=== PATIENT | male | born 1955 | race Caucasian/White ===

== ENCOUNTER 2018-09-18 11:13 | Inpatient (IN) | payer OTHER ==
[~2018-09-18] VITALS: Ht 167.6 cm; Wt 137.4 kg
[2018-09-18 11:13] VITALS: BP 128/84
[~2018-09-18 11:13] MED LIST: ASPIR 8181 MG PO; ASPIRIN325 PO; AVALIDE 300-121 EACH PO; IRBESARTAN-HCT1 EAC1; LOSARTAN-HCTZ1 EAC2 PO; PAXIL10 MG
[2018-09-18] MEDS ORDERED: FARXIGA10 MG PO (12:36)
[2018-09-18] MEDS ORDERED: NORVASC2.5 MG PO (12:37)
[2018-09-18] MEDS ORDERED: FLOMAX0.4 MG PO (12:37)
[2018-09-18 17:35] LABS: ABSOLUTE NEUTROPHILS 11.4 thou/uL (1.4-8.2); BASOPHILS 0.5 % (0.0-2.0); EOSINOPHILS 0.6 % (0.0-3.0); HEMOGLOBIN 16.8 gm/dL (14.0-18.0); LYMPHOCYTES 8.4 % (24.0-44.0); MCH 27.7 pg (26.0-34.0); MCV 83.9 fL (80.0-100.0); MONOCYTES 7.7 % (1.0-8.0); PLATELET COUNT 215 thou/uL (150-400); POLYS 82.8 % (36.0-66.0); RBC 6.07 mil/uL (4.50-6.00); RDW 14.3 % (10.5-14.5); WBC 13.7 thou/uL (4.0-11.0)
[2018-09-18 17:43] LABS: CALCIUM 9.2 mg/dL (8.5-10.1); CREATININE 0.9 mg/dL (0.7-1.3); POTASSIUM 3.9 mmol/L (3.5-5.1)
[2018-09-18 19:40] VITALS: BP 114/71
[2018-09-18 20:11] VITALS: BP 114/71
[2018-09-19 04:30] VITALS: BP 100/60
[2018-09-19 05:28] LABS: HEMATOCRIT 48.8 % (42.0-52.0); HEMOGLOBIN 16.2 gm/dL (14.0-18.0); MCH 28.1 pg (26.0-34.0); MCHC 33.2 g/dL (28.0-37.0); MCV 84.6 fL (80.0-100.0); RBC 5.78 mil/uL (4.50-6.00); RDW 14.5 % (10.5-14.5); WBC 11.8 thou/uL (4.0-11.0)
[2018-09-19 05:44] LABS: CALCIUM 8.7 mg/dL (8.5-10.1); CREATININE 0.9 mg/dL (0.7-1.3); MAGNESIUM 2.1 mg/dL (1.8-2.4); POTASSIUM 3.9 mmol/L (3.5-5.1)
--- NOTE | 2018-09-19 05:59 | NUR ---
PATIENT CARES WERE ASSUMED AT SHIFT CHANGE, PATIENT WAS ASSESSED AND MEDS WERE PASSED. PATIENT DID REFUSED HIS FLOMAX AT HS. PATIENT STATED HE TAKES THAT MED AT NIGHT. WILL RESCHEDULE FLOMAX. HOURLY ROUNDING WAS DONE. PATIENT DID APPER TO SLEEP ABOUT 5 HOURS. THE BED IS IN A LOW LOCKED POSITION.
--- NOTE | 2018-09-19 07:51 | EKG ---
[place] [address] [facility] [place] [address] ELECTROCARDIOGRAM REPORT Name: FRANCESCA RODRIGUES Room #: 432-P [facility]..#: [id number] ������������������ Admission: 09/18/18 ������������������ Attend Phys: Sacha Kay MD Discharge: ������������������ Date of : 51 Report #: [id number] ����������������������������������������������������������������� [id number] THIS REPORT FOR: //name// [facility] ED Test Date: 2018-09-18 Test Time: 16:50:01 Pat Name: FRANCESCA RODRIGUES Department: Room: 432 Gender: M Director Of Retail: HANNAH : 1955 Requested By: Jody Reinoso Order Number: [id number] MD: Jabier Saleh Measurements Intervals [place] Rate: 79 P: 7 VA: 193 QRS: -15 QRSD: 89 T: 19 QT: 379 QTc: 435 Interpretive Statements Sinus rhythm Borderline left axis deviation Abnormal R-wave progression, early transition Compared to ECG 11/04/2015 21:49:53 Sinus tachycardia no longer present Electronically Signed On 09-19-2018 7:51:49 MDS COORDINATOR by Jabier Saleh [email or web address] ��������������������������������������������� <ELECTRONICALLY SIGNED> ���������������������������������������� By: Jabier Saleh MD, [facility] ��������������������������������������������� 09/19/18 0751 1650 1650 Jabier Saleh MD, [facility] /EPI
[2018-09-19 08:30] VITALS: BP 96/53
[2018-09-19] MEDS ORDERED: IRBESARTAN-HCT1 EAC1 PO (09:09)
[2018-09-19] MEDS ORDERED: MIRALAX17 GM PO (09:09)
[2018-09-19 10:33] VITALS: BP 96/53
[2018-09-19 10:54] VITALS: BP 169/93
--- NOTE | 2018-09-19 12:44 | NUR ---
Assumed pt care at 7am.Pt in bed resting and wanted to dc home this am. Assessment completed.vss.Pt tolerated meds and diet.Dr aKy her,dc order noted.Dc summary compiled and reviewed with pt and dc summary copy given. Saline lock dc'd.At 1120,pt dc home in [place] accompanied by behavioral technician.
== END 2018-09-19 12:56 | disposition home or self-care (01) | DRG 378 ==
LOC: ER 11:13 → 4E 18:36 → EROBS 18:36 → 4E 20:11
PROVIDERS: Emergency Medicine; ADMIT Internal Medicine
DX: K62.5 Hemorrhage of anus and rectum (principal); Z68.42 Body mass index [BMI] 45.0-49.9, adult; K59.00 Constipation, unspecified; I10 Essential (primary) hypertension; E11.9 Type 2 diabetes mellitus without complications; E66.01 Morbid (severe) obesity due to excess calories; Z79.82 Long term (current) use of aspirin; Z79.899 Other long term (current) drug therapy
CPT/HCPCS: 10783

== ENCOUNTER → 2018-10-13 | Outpatient (CLI) | payer OTHER ==
[~2018-10-13] VITALS: Ht 170.2 cm; Wt 131.5 kg
[~2018-10-13] MED LIST changes: +AFRIN15 ML NASAL; +AZELASTINE137 MCG/0. NASAL; +FARXIGA10 MG PO; +FLOMAX0.4 MG PO; +FLONASE 0.05%50 MCG NASAL; +IRBESARTAN-HCT1 EAC1 PO; +MIRALAX17 GM PO; +NORVASC2.5 MG PO
--- NOTE | 2018-10-16 08:40 | P ---
[facility] [place] [address] PROCEDURE REPORT Name: FRANCESCA RODRIGUES [id number] Admission: 10/13/18 ������������������ Attend Phys: Link Jaimes Discharge: ������������������ Date of : 51 Report #: [id number] THIS REPORT FOR: //name// CC: Link Kay DATE OF SERVICE: 10/13/2018 PROCEDURE PERFORMED: Colonoscopy with biopsies. HISTORY OF PRESENT ILLNESS: The patient is a 63-year-old male with a history of intermittent bright red blood per rectum. He does report constipation recently. Last colonoscopy was in 2004. He is unsure of the findings at that time. No family history of colon cancer. PROCEDURE: The risks and benefits of the procedure were explained to the patient, those risks including but not limited to bleeding, perforation, the risk of sedation. He understood these risks and gave informed consent. Sedation was given using propofol per anesthesia. Next, a digital rectal exam was initially performed, showed small external hemorrhoids, otherwise normal. Next, using a standard Olympus colonoscope, the scope was placed in the patient's anus and advanced under direct vision to the cecum. The overall prep was good. In the cecum, there was a 3 mm sessile polyp. This was removed with cold forceps, otherwise normal. The ileocecal valve was normal. The ascending, transverse and descending colon were normal. Multiple small diverticula were noted in the sigmoid colon, no evidence of inflammation, otherwise normal. The rectal mucosa was normal. On retroflexion, small nonbleeding internal hemorrhoids were noted. Close examination of the anal canal showed a small anal fissure, nonbleeding and small external hemorrhoids as well. The scope was then withdrawn and the procedure terminated. The patient tolerated the procedure well. IMPRESSION: 1. Small colonic polyp. 2. Sigmoid diverticulosis. 3. Internal and external hemorrhoids. 4. Small anal fissure. RECOMMENDATIONS: 1. Await biopsy results. 2. I suspect recent bright red blood is from anal fissure. Would recommend daily MiraLax as well as Analpram b.i.d. for the next 2 weeks and then on a p.r.n. basis. [address] [address] PROCEDURE REPORT Name: FRANCESCA RODRIGUES [place] [facility] [id number] Admission: 10/13/18 ������������������ Attend Phys: Link Jaimes Discharge: ������������������ Date of : 51 Report #: [id number] Thank you for allowing me to participate in his care. ��������������������������������������������� <ELECTRONICALLY SIGNED> ���������������������������������������� By: Link Perera MD ��������������������������������������������� 10/16/18 0840 1114 1125 Link Perera MD /nt
--- NOTE | 2018-10-17 13:08 | PATH ---
[facility] [place] [address] PATHOLOGY RPT PROCEDURE Name: RAVI,FRANCESCACharly JENNINGS Room #: REG [facility] M.R.#: [id number] ������������������ Admission: 10/13/18 ������������������ Date of : 51 Discharge: Report #: [id number] Path Case #: [id number] [facility] Accession Number: [id number] . 01 Material submitted: . BIOPSY OF POLYP AT CECUM . 01 Clinical history: . Pre-OP DX: Blood in stool Post-OP DX: Colon polyp, diverticulosis, internal hemorrhoid, rectal fissure . 02 Diagnosis: Polyp, at cecum, endoscopic biopsy: - Compatible with an inflammatory polyp with hyperplastic changes. - Negative for dysplasia or malignancy. (IUV:agricultural education instructor; 10/16/2018) MBR/10/16/2018 . 02 Electronically signed: . Nevaeh Pepe MD, Pathologist NPI- [id number] . 01 Gross description: . Received in formalin labeled "Francesca Alberto, BX of polyp at cecum," is a single segment of dela cruz soft tissue measuring 0.7 cm in maximum dimension. The specimen is entirely submitted in cassette A1. (TSD; 10/13/2018) TOB/TOB . 02 Pathologist provided ICD-10: K63.5 . 02 CPT . 934719 Specimen Comment: A courtesy copy of this report has been sent to Specimen Comment: [phone], . Specimen Comment: Report sent to / DR KELLY Performed at: [address], [place], [place] [id number] MD Dami Mendieta MD Phone: [phone] Performed at: [address] [id number] MD Nevaeh Pepe MD Phone: [phone]
== END | disposition home or self-care (01) ==
LOC: GI 07:48
DX: K63.5 Polyp of colon (principal); K57.30 Diverticulosis of large intestine without perforation or abscess without bleeding; K64.8 Other hemorrhoids; K64.4 Residual hemorrhoidal skin tags; K60.2 Anal fissure, unspecified; I10 Essential (primary) hypertension; E11.9 Type 2 diabetes mellitus without complications; K21.9 Gastro-esophageal reflux disease without esophagitis; Z98.41 Cataract extraction status, right eye; Z98.42 Cataract extraction status, left eye; Z98.890 Other specified postprocedural states; Z79.899 Other long term (current) drug therapy; Z79.82 Long term (current) use of aspirin